=== PATIENT | female | born 1935 | race Caucasian/White ===

== ENCOUNTER 2018-04-15 03:03 | Emergency (ER) | payer OTHER ==
[2018-04-15] MEDS ORDERED: 0.9 % SODIUM CHLORIDE 1,000 ML IV ONE (03:13)
--- NOTE | 2018-04-15 04:22 | ED Physician Documentation ---
Syncope/Near Syncope - HISTORIAN Historian: patient - HPI Stated Complaint: Syncopal episode Chief Complaint: Syncope Witnessed: Yes Witnessed By: family Symptoms after Event: incontinent of urine. denies: incontinent of stool, breathing shallow, breathing stopped, lost pulse, dextrostick low [employer] Location of Injury: none Associated Symptoms: none Further Comments: yes (82 year old female patient brought in via EMS after syncopal episode at [facility]. Patient had been playing slot machine since 1500, episode occurred 0300. Blood sugar was 140. Patient was incontinent of urine.) - ROS CONST: recent illness EYES/ENT: none - PAST HX Cardiac Disease: CAD Other History: Other (cataract,) Surgeries/Procedures: cardiac bypass, hysterectomy - SOCIAL HX Smoking History: non-smoker - FAMILY HX Family History: denies: none - REVIEWED ASSESSMENTS Nursing Assessment Reviewed: Yes Vitals Reviewed: Yes - PAST HX Allergies/Adverse Reactions: Allergies Allergy/AdvReac Type Severity Reaction Status Date / Time simvastatin [From Zocor] Allergy Verified 04/15/18 03:33 sulfamethoxazole Allergy Verified 04/15/18 03:33 [From Bactrim] trimethoprim [From Bactrim] Allergy Verified 04/15/18 03:33 Home Medications: Ambulatory Orders Medication Instructions Recorded Aspirin [Aspir-Low] 81 mg PO HS 04/15/18 Cholecalciferol (Vitamin D3) 5,000 mg PO D 04/15/18 [Vitamin D3] Gabapentin 300 mg PO HS 04/15/18 Magnesium Oxide [Magnesium] 500 mg PO D 04/15/18 Ropinirole HCl 2 mg PO BID 04/15/18 - VITAL SIGNS Vital Signs: Vital Signs Temp Pulse Resp BP Pulse Ox 72 16 141/78 95 04/15/18 06:30 04/15/18 03:04 04/15/18 04:07 04/15/18 06:30 Progress - EKG/XRAY/CT EKG: rhythm (SR, rate 68, no acute changes) - Progress Progress: Reviewed lab and ekg results with patient. Recommended admission for further monitoring and cardiac work up. Patient refuses admission, refuses transfer. Risk and benefits explained. Nurse discussed risk and benefits of admission. 0500 Explained risk of UT, CVA, repeat syncope, fall and . Patient continues to refuse admission. Patient did agree to 4 hour troponin and cont inued monitoring until [address] Walls - troponin pending ([place]) Troponin result delayed, pt did not wish to wait another hour for the result and signed out AMA. Pt advised that on the basis of her HEART score the probability of an adverse cardiac event was at least 12%. Pt voiced understanding and signed out AMA. (Mahin Walls) - Lab Results Lab Results: Lab Results 04/15/18 04/15/18 04/15/18 03:15 03:15 03:15 WBC 4.50 K/ul K/ul (4.00-12.00) RBC 4.05 M/ul M/ul (3.90-5.20) Hgb 12.1 g/dL g/dL (12.0-16.0) Hct 36.4 % % (34.5-46.5) MCV 90.0 fl fl (80.0-100.0) MCH 29.9 pg pg (28.0-34.0) MCHC 33.3 g/dL g/dL (30.0-36.0) RDW 13.4 % % (11.3-14.3) Plt Count 234 K/mm3 K/mm3 (130-400) Neut % (Auto) 67.1 % % (39.0-79.0) Lymph % (Auto) 23.2 % % (16.0-50.0) [place] % (Auto) 7.4 % % (0.0-11.0) Eos % (Auto) 1.9 % % (0.0-6.8) Baso % (Auto) 0.4 (0.0-1.5) Neut # (Auto) 3.0 # k/uL # k/uL (1.4-7.7) Lymph # (Auto) 1.1 # k/uL # k/uL (0.6-4.0) [place] # (Auto) 0.3 # k/uL # k/uL (0.0-0.9) Eos # (Auto) 0.1 # k/uL # k/uL (0.0-0.6) Baso # (Auto) 0.0 # k/uL # k/uL (0.0-0.5) Sodium 140 mmol/L mmol/L (136-145) Potassium 3.5 mmol/L mmol/L (3.5-5.1) Chloride 103 mmol/L mmol/L (98-107) Carbon Dioxide 28 mmol/L mmol/L (22-30) BUN 13 mg/dL mg/dL (7-17) Creatinine 0.73 mg/dL mg/dL (0.52-1.04) Estimated Creat Clear 67 Est GFR ( Amer) > 60 (60 - ) Est GFR (Non-Af Amer) > 60 (60 - ) Glucose 104 mg/dL mg/dL (74-106) Calcium 9.0 mg/dL mg/dL (8.4-10.2) Total Bilirubin 0.4 mg/dL mg/dL (0.2-1.3) AST 26 U/L U/L (15-46) ALT 29 U/L U/L (13-69) Alkaline Phosphatase 49 U/L U/L (38-126) Troponin I < 0.03 ng/mL L ng/mL (0.03-0.06) Total Protein 6.1 g/dL L g/dL (6.3-8.2) Albumin 3.9 g/dL g/dL (3.5-5.0) - Orders Orders: ED Orders Category Date Time Status Continuous EKG monitoring Q30M Care 04/15/18 03:14 Active Continuous Pulse Oximetry Q1H Care 04/15/18 03:31 Active Orthostatics 1T Care 04/15/18 04:[address] IV Lock 1T Care 04/15/18 03:22 Active CBC/PLATELET/DIFF Routine Lab 04/15/18 03:15 Completed CMP [CMP] Routine Lab 04/15/18 03:15 Completed TROPONIN I (cTnI) Stat Lab 04/15/18 03:15 Completed TROPONIN I (cTnI) Stat Lab 04/15/18 07:00 Ordered UA W/MICRO IF INDICATED Stat Lab 04/15/18 04:56 Ordered 0.9 % Sodium Chloride [Normal Saline] 1,000 ml Med 04/15/18 03:13 Discontinued IV Q1H EKG WITH COMPARISON Stat Ther 04/15/18 Ordered Syncope Physical Exam - Physical Exam General Appearance: no acute distress, alert Respiratory: no resp distress, chest non-tender, breath sounds normal CVS: reg rate & rhythm, heart sounds normal, equal pulses, no murmur, no gallop, PMI nml, no JVD, no friction rub, 24 Abdomen: non-tender, no organomegaly, nml bowel sounds, no distention Skin: normal color, warm/dry, NR, INT, PAL, DR Extremities: non-tender, normal range of motion, no evidence of injury, no edema - Neuro/Psych Higher Functions: alert, oriented x3, no evidence of acute CVA, mood/affect nml Cranial Nerves: nml as tested Cerebellar: nml as tested, nml gait Sensorimotor: nml motor response, nml sensory response, nml reflexes, nml gait Discharge Decision to Admit: NO Decision Time: 04:49 Clincal Impression: Syncope Qualifiers: Syncope type: unspecified Qualified Code(s): R55 - Syncope and collapse Clincal Impression: (Ruled Out): Left against medical advice Referrals: Primary Doctor,No [Primary Care Provider] - 2 Days Additional Instructions: Return to the ER if you pass out, have chest pain, shortness of breath, dizziness, or do not feel well. Rest Do not drive Condition: Stable Disposition: 01 HOME, SELF-CARE
[2018-04-15 06:43] LABS: eGFR (Non-African) > 60
[2018-04-15 06:44] LABS: BASOPHILS % 0.4 (0.0-1.5); EOSINOPHILS % 1.9 % (0.0-6.8); MEAN CORPUSCULAR HEMOGLOBIN 29.9 pg (28.0-34.0); MONOCYTES % 7.4 % (0.0-11.0)
[2018-04-15 07:56] VITALS: BP 135/80
[2018-04-15 13:03] LABS: APPEARANCE,URINE CLEAR (CLEAR); COLOR,URINE YELLOW (YELLOW); OCCULT BLOOD,URINE NEGATIVE (NEGATIVE); UROBILINOGEN URINE 0.2 Eu (0.2-1.0)
== END 2018-04-15 07:56 | disposition home or self-care (01) ==
LOC: ED 03:03
DX: R55 Syncope and collapse (principal)
CPT/HCPCS: 36415; 80053; 81002; 84484; 85025; 93005; 99283; 99284; J7030